=== PATIENT | male | born 1960 | race Caucasian/White ===

== ENCOUNTER → 2024-01-07 | Outpatient (CLI) | payer OTHER | END | disposition home or self-care (01) | LOC: RAD 14:37 | PROVIDERS: ATTEND Nurse Practitioner Family | DX: I51.7 Cardiomegaly (principal); Z00.00 Encounter for general adult medical examination without abnormal findings; M51.34 Other intervertebral disc degeneration, thoracic region; M47.814 Spondylosis without myelopathy or radiculopathy, thoracic region | CPT/HCPCS: 71046 ==

== ENCOUNTER → 2024-08-17 | Outpatient (CLI) | payer OTHER | END | disposition home or self-care (01) | LOC: RAD 14:31 | PROVIDERS: ATTEND Physician Assistant | DX: M25.862 Other specified joint disorders, left knee (principal); M25.861 Other specified joint disorders, right knee; Z96.653 Presence of artificial knee joint, bilateral | CPT/HCPCS: 73560 ==